=== PATIENT | male | born 1945 | race Caucasian/White ===

== ENCOUNTER 2020-09-29 10:14 | Emergency (ER) | payer MEDICARE, OTHER, SELFPAY ==
[2020-09-29 10:28] VITALS: BP 121/67; PULSE 85; RESP 18; TEMP 36.1; O2SAT 99
[2020-09-29 11:25] VITALS: BP 153/79; PULSE 68; RESP 16; O2SAT 99
[2020-09-29 11:32] VITALS: PULSE 68
--- NOTE | 2020-09-29 11:50 | ECG_ITS ---
Measurements Intervals [place] Rate: 61 P: 45 MT: 182 QRS: -11 QRSD: 106 T: 21 QT: 384 QTc: 390 Interpretive Statements SINUS RHYTHM DELAYED PRECORDIAL R/S TRANSITION BASELINE ARTIFACT- I, III BORDERLINE ECG Electronically Signed On 09-29-2020 13:47:14 CDT by Dave Mas D.O.
[2020-09-29 12:22] LABS: Basophils Percent Auto 0.3 % (0.2-1.2); Eosinophils Percent Auto 0.3 % (0-4.4); Hematocrit 43.6 % (42.0-52.0); Hemoglobin 15.3 g/dL (14.0-18.0); Immature Granulocyte Absolute 0.08 K/mm3 (0.00-0.031); Immature Granulocyte Percent A 1.2 % (0-0.5); Lymphocytes Percent Auto 15.9 % (18.3-44.2); Mean Corpuscular HGB Conc 35.1 g/dl (32-36); Mean Corpuscular Hemoglobin 34.5 pg (26-34); Mean Corpuscular Volume 98.4 fl (80-100); Mean Platelet Volume 9.2 fl (7.4-10.4); Monocytes Absolute Auto 0.6 K/mm3 (0.1-0.6); Monocytes Percent Auto 8.9 % (2.6-8.5); Neutrophils Absolute Auto 5.1 K/mm3 (1.3-6.7); Neutrophils Percent Auto 73.4 % (45.5-73.1); Platelet Count Result 282 k/mm3 (150-375); Red Blood Count 4.43 M/mm3 (4.6-6.20); Red Cell Distribution Width 12.2 % (11.5-14.5); White Blood Count 6.9 K/mm3 (4.5-10.0)
[2020-09-29 12:31] LABS: Alanine Aminotransferase 23 U/L (4-50); Albumin Level 4.4 g/dL (3.5-5.1); Alkaline Phosphatase 68 U/L (38-126); Anion Gap 6 mmol/L (8-16); Aspartate Amino Transferase 33 U/L (17-59); Bilirubin,Total 0.5 mg/dL (0.2-1.3); Blood Urea Nitrogen 16 mg/dL (9-20); Calcium 9.7 mg/dL (8.4-10.2); Carbon Dioxide 30 mmol/L (22-30); Chloride 97 mmol/L (98-107); Estimated CRCL calculation 57 ml/min; Estimated Glomerular Filt Rate > 60; Glucose 113 mg/dL (75-110); Potassium 3.6 mmol/L (3.4-5.0); Sodium 133 mmol/L (137-145)
[2020-09-29 12:42] LABS: Troponin I < 0.012 ng/mL (0.000-0.034)
--- NOTE | 2020-09-29 12:44 | ED.GENADULT ---
HPI - General Adult General Chief complaint: Unspecified Stated complaint: arm tingling, hx of back problems x1 wk Time Seen by Provider: 09/29/20 11:22 Source: patient and family Mode of arrival: ambulatory Limitations: no limitations History of Present Illness HPI narrative: 75-year-old male History of peripheral vascular disease and previous neck surgery Patient complains of about a 10-day history of tingling paresthesias in both arms He reports that usually he feels okay when he first gets up in the morning but then the paresthesias occur after a while and remained for most of the day Apart from being up and around no specific activities seem to cause or exacerbate the symptoms; it really doesn't matter whether he is walking around standing still or sitting He does not have any other new symptoms, no chest pain, no dizziness or diaphoresis, no cough or shortness of breath, no nausea or other GI symptoms, no focal weakness He chronically complains of leg fatigue with ambulation and has seen his vascular surgeon about this and reports that they thought it might be neuropathic He is most worried about whether he has a heart issue, or a vascular issue in the arms, or return of his back problems Related Data Home Medications Medication Instructions Recorded Confirmed amlodipine 05/21/19 01/19/20 atorvastatin 05/21/19 01/19/20 clopidogrel 05/21/19 01/19/20 finasteride mg 05/21/19 01/19/20 lisinopril-hydrochlorothiazide tablet 05/21/19 01/19/20 milk thistle mg 05/21/19 01/19/20 pediatric bwcyvjyf-vdut-pbc 1 tablet PO DAILY 05/21/19 01/19/20 [Multi-Vitamins with Iron] saw palmetto 500 mg PO BID 05/21/19 01/19/20 tamsulosin mg PO 05/21/19 01/19/20 Allergies Allergy/AdvReac Type Severity Reaction Status Date / Time No Known Allergies Allergy Verified 09/29/20 11:30 Review of Systems Review of Systems: All systems reviewed & are unremarkable except as noted in HPI and below Constitutional: Constitutional: Reports no additional constitutional complaints, Denies chills, Denies fever(s) and Denies headache(s) Eyes: Eyes: Reports no additional eye complaints and Denies change in vision ENT: Denies headache(s) and Denies sore throat Cardiovascular: Cardiovascular: Denies chest pain and Denies dyspnea Respiratory: Respiratory: Denies cough and Denies dyspnea Gastrointestinal: Gastrointestinal: Denies abdominal pain, Denies diarrhea and Denies vomiting Genitourinary: Genitourinary: Denies dysuria and Denies urinary frequency Musculoskeletal: Musculoskeletal: Reports abnormal gait, Denies deformity, Denies arthralgias, Denies joint swelling, Reports muscle cramps, Reports muscle weakness, Denies numbness and Reports radiating pain into limb Integumentary/Breasts: Skin/Breast: Denies rash and Denies wounds Neurologic: Denies headache(s), Denies focal weakness, Denies numbness, Reports tingling, Reports paresthesias and Denies weakness Psychiatric: Psychiatric: Reports no additional psychiatric complaints Endocrine: Endocrine: Reports no additional endocrine complaints Hematologic/Lymphatic: Hematologic/Lymphatic: Reports no additional hematologic/lymphatic complaints Allergic/Immunologic: Allergic/Immunologic: Reports no additional allergic/immunologic complaints PMF Past Medical History Medical History (Updated 09/29/20 @ 13:03 by Willard Stanford MD) BMI 25.0-25.9,adult Femoral artery stenosis, left Hyperlipidemia Hypertension Peripheral vascular disease Prostatitis Surgical History Surgical History (Updated 01/19/20 @ 08:23 by Elian Alarcon MD) History of lumbar fusion History of right knee surgery revision right total knee replacement December 2018 History of tonsillectomy Family History Family History (Updated 01/19/20 @ 08:02 by Laverne Michaels) Father Hypertension Social History Social History Smoking status: Never smoker Gender
[2020-09-29 14:03] VITALS: BP 157/72; PULSE 69; RESP 18; O2SAT 100
== END 2020-09-29 14:17 | disposition home or self-care (01) ==
PROVIDERS: Emergency Provider Emergency Medicine; PCP Family Medicine
DX: R20.2 Paresthesia of skin (principal); E78.5 Hyperlipidemia, unspecified; I10 Essential (primary) hypertension; N41.9 Inflammatory disease of prostate, unspecified; I70.202 Unspecified atherosclerosis of native arteries of extremities, left leg; Z98.1 Arthrodesis status; Z96.651 Presence of right artificial knee joint; R94.31 Abnormal electrocardiogram [ECG] [EKG]
CPT/HCPCS: 36415; 80053; 84484; 85025; 93005; 99284

== ENCOUNTER 2020-11-02 13:26 | Outpatient (CLI) | payer MEDICARE, OTHER, SELFPAY ==
--- NOTE | ~2020-11-02 | MR_ITS ---
EXAMINATION: MR lumbar spine wo con DATE: 11/02/2020 15:45 INDICATION: Lumbar spondylosis. Back pain. TECHNIQUE: Magnetic resonance imaging (MRI) of the lumbar spine was performed without intravenous con trast. Sequences included sagittal T2-weighted FSE, sagittal T2-weighted FS FSE, sagittal T1-weighted FSE, and axial T2-weighted FSE. COMPARISON: None FINDINGS: Bone alignment is normal. There is mild chronic anterior wedging of T12 and L1 vertebral enmanuel dies. There is mildly decreased disc height at L4-L5. There is severely decreased disc height at L5-S 1 with endplate remodeling. The distal spinal cord signal intensity is normal. The conus medullaris i s at L1. The following disc levels are specifically discussed: L1-L2: The disc is bulging. There is mild right and moderate left facet joint osteoarthritis. There i s no neural foraminal stenosis. There is mild central canal stenosis. L2-L3: The disc is bulging. There is moderate bilateral facet joint osteoarthritis. There is mild shad ateral neural foraminal stenosis. There is mild central canal stenosis. L3-L4: The disc is bulging. There is moderate right and severe left facet joint osteoarthritis. There is mild bilateral neural foraminal stenosis. There is mild central canal stenosis. L4-L5: The disc is bulging. There is severe bilateral facet joint osteoarthritis. There is mild right and moderate left neural foraminal stenosis. There is mild central canal stenosis. L5-S1: The disc is bulging. There is moderate bilateral facet joint osteoarthritis. There is moderate right and mild left neural foraminal stenosis. There is mild central canal stenosis. IMPRESSION: 1. Severe lower lumbar spondylosis. Reviewed, dictated and finalized at location A.
--- NOTE | ~2020-11-02 | MR_ITS ---
EXAMINATION: MR thoracic spine wo con DATE: 11/02/2020 15:45 INDICATION: Other spondylosis. Back pain. TECHNIQUE: Magnetic resonance imaging (MRI) of the thoracic spine was performed without intravenous c ontrast. Sagittal localizer T1-weighted FSE of the cervical spine was obtained. Thoracic spine sequen angelina included sagittal T2-weighted FSE, sagittal T1-weighted FSE, sagittal STIR FSE, and axial T2-weig hted FSE. COMPARISON: CT abdomen and pelvis 11/02/2020 FINDINGS: There is 9 degrees levocurvature of thoracic spine. There is a chronic compression fracture of T9 with 3/5 loss of height and focal kyphosis. There is a hemangioma in T7 vertebral body. There is moderately decreased disc height at T8-T9. At T1-T2, the disc is bulging with mild central canal s tenosis. At T2-T3, the disc is bulging with mild central canal stenosis. At T3-T4, there is a left fo raminal protrusion. There is ankylosis of the facet joints bilaterally from T6 to T11. There is sever e facet joint osteoarthritis in upper thoracic spine. On the right, there is mild neural foraminal st enosis at T9-T10. On the left, there is mild neural foraminal stenosis at T1-T2, T3-T4, and T9-T10. IMPRESSION: 1. Mild thoracic spondylosis. Reviewed, dictated and finalized at location A.
--- NOTE | ~2020-11-02 | MR_ITS ---
EXAMINATION: MR cervical spine wo con DATE: 11/02/2020 15:45 INDICATION: Cervical spondylosis. Back pain. TECHNIQUE: Magnetic resonance imaging (MRI) of the cervical spine was performed without intravenous c ontrast. Sequences included sagittal T2-weighted FSE, sagittal STIR FSE, sagittal T1-weighted FSE, ax ial MERGE, and axial T2-weighted FSE. COMPARISON: None FINDINGS: There is 2 mm anterolisthesis of C4 on C5 and C7 on T1. Vertebral body heights are normal. There is mildly decreased disc height at C4-C5, severely decreased disc height at C5-C6 and C6-C7, an d mildly decreased disc height at C7-T1. The spinal cord signal intensity is normal. The following di sc levels are specifically discussed: C2-C3: The disc does not extend beyond the endplate margin. There is no uncovertebral joint osteoarth ritis. There is mild bilateral facet joint osteoarthritis. There is no neural foraminal stenosis. The re is no central canal stenosis. C3-C4: The disc is bulging. There is mild bilateral uncovertebral joint osteoarthritis. There is mode rate right and mild left facet joint osteoarthritis. There is mild bilateral neural foraminal stenosi s. There is mild central canal stenosis. C4-C5: The disc is bulging. There is severe bilateral uncovertebral joint osteoarthritis. There is se venessa bilateral facet joint osteoarthritis. There is moderate bilateral neural foraminal stenosis. The re is mild central canal stenosis. C5-C6: The disc is bulging. There is severe bilateral uncovertebral joint osteoarthritis. There is mi ld bilateral facet joint osteoarthritis. There is moderate bilateral neural foraminal stenosis. There is mild central canal stenosis. C6-C7: The disc is bulging. There is severe bilateral uncovertebral joint osteoarthritis. There is mo derate bilateral facet joint osteoarthritis. There is mild bilateral neural foraminal stenosis. There is mild central canal stenosis. C7-T1: The disc does not extend beyond the endplate margin. There is no uncovertebral joint osteoarth ritis. There is ankylosis of the facet joints with mild hypertrophy. There is mild bilateral neural f oraminal stenosis. There is no central canal stenosis. IMPRESSION: 1. Severe cervical spondylosis. Reviewed, dictated and finalized at location A.
== END 2020-11-02 13:27 | disposition home or self-care (01) ==
LOC: ANHIMG 13:31
PROVIDERS: PCP Family Medicine; Visit Provider Family Medicine
DX: M47.893 Other spondylosis, cervicothoracic region (principal); R20.2 Paresthesia of skin; M47.894 Other spondylosis, thoracic region; M47.892 Other spondylosis, cervical region; M47.896 Other spondylosis, lumbar region
CPT/HCPCS: 72141; 72146; 72148

== ENCOUNTER 2021-06-05 13:31 | Emergency (ER) | payer MEDICARE, OTHER, SELFPAY ==
[2021-06-05] VITALS (7 sets, daily range): BP systolic 113–151; BP diastolic 71–87; PULSE 67–87; RESP 16–24; TEMP 36.1–37; O2SAT 86–100
--- NOTE | ~2021-06-05 | CT_ITS ---
EXAMINATION: CT brain wo con INDICATION: Dizziness COMPARISON: 05/04/2015 TECHNIQUE: Standard unenhanced head CT. The dose-length product (DLP) was 605.33 mGy-cm. The mA was a djusted according to patient size. Iterative reconstruction technique was employed. FINDINGS: There is no acute intraparenchymal hemorrhage. No evidence of mass lesion. No evidence of a cute infarction. There is mild periventricular and subcortical hypodensity probably related to small vessel ischemic disease. There is mild prominence of the sulci and ventricles related to cerebral atr ophy. Intracranial calcified cerebral atherosclerosis is noted. There are no extra-axial collections. There is no mass effect or midline shift. Changes in the globes are likely from ocular lens surgery. The visualized sinuses and mastoid air cells are well aerated. IMPRESSION: 1. No acute intracranial abnormality. 2. Age related findings. Reviewed, dictated and finalized at location F. PROGRAM DIRECTOR
--- NOTE | ~2021-06-05 | XR_ITS ---
EXAMINATION: XR chest 2V DATE: 06/05/2021 19:22 INDICATION: Dizziness TECHNIQUE: PA and lateral views of the chest are obtained. COMPARISON: 03/14/2015 FINDINGS: The lungs are free of acute opacities. There is chronic subpleural opacity at the lateral a spect of the right thorax. There are also chronic opacities of the right mid and lower lung zones. No acute superimposed opacities are identified. The cardiomediastinal silhouette is normal. There is no pleural effusion or pneumothorax. The cardiomediastinal silhouette is normal. There is an unchanged chronic mid thoracic compression fracture. IMPRESSION: 1. Chronic scarring and opacity of the right lung without acute cardiopulmonary abnormality. Reviewed, dictated and finalized at location F. WORKER
--- NOTE | 2021-06-05 16:25 | ECG_ITS ---
Measurements Intervals [place] Rate: 80 P: 44 LA: 144 QRS: -14 QRSD: 96 T: 64 QT: 347 QTc: 402 Interpretive Statements SINUS RHYTHM VENTRICULAR PREMATURE COMPLEXES BORDERLINE R WAVE PROGRESSION, ANTERIOR LEADS BASELINE ARTIFACT- I, AVL, AVF, V6 BORDERLINE ECG Electronically Signed On 06-05-2021 17:04:53 POLLUTION CONTROL CHEMIST by Dave Mas D.O.
--- NOTE | 2021-06-05 18:20 | ED.DIZZY ---
HPI - Dizziness General Chief Complaint: Dizziness Stated Complaint: sent by primary - needs EKG Time Seen by Provider: 06/05/21 18:20 Source: patient Mode of arrival: ambulatory Limitations: no limitations History of Present Illness HPI Narrative: Patient is a 76 yo male with a history of HTN, HLD, BPH. Patient states he has been intermittently lightheaded and dizzy. He denies any current dizziness. No spinning sensation. No difficulty with ambulation. Patient states that he had an appointment with his primary care provider and had his pulse checked which was found to be irregular, and his blood pressure was found to be elevated, thus he was sent to the emergency department for evaluation. Patient states he sometimes is aware that he has an irregular heartbeat or feels as if his heart is skipping a beat. He denies any leg swelling or calf pain. Patient denies any current chest pain or palpitations. No recent falls or injuries. No loss of consciousness or syncopal events. Patient denies any shortness of breath, current dizziness, lightheadedness. Patient denies any fever, chills, nausea, vomiting or abdominal pain. Patient denies any vision changes. No headache. No difficulty with bowel or bladder function. Related Data Home Medications Medication Instructions Recorded Confirmed amlodipine 06/05/21 atorvastatin 06/05/21 clopidogrel 06/05/21 finasteride mg 06/05/21 lisinopril-hydrochlorothiazide tablet 06/05/21 rivaroxaban [Xarelto] mg 06/05/21 tamsulosin mg PO 06/05/21 zolpidem 06/05/21 Allergies Allergy/AdvReac Type Severity Reaction Status Date / Time No Known Allergies Allergy Verified 06/05/21 19:35 Review of Systems Review of Systems: CONSTITUTIONAL: Denies fever, chills, or sweats. EYES: Denies visual changes, redness, or discharge. ENT: Denies rhinorrhea, congestion, sore throat, or otalgia. CARDIOVASCULAR: Denies chest pain, patient reports palpitations or skipped beats RESPIRATORY: Denies cough or dyspnea. GASTROINTESTINAL: Denies abdominal pain, nausea, vomiting, or diarrhea. GENITOURINARY: Denies dysuria or hematuria. SKIN: Denies rash or itching. MUSCULOSKELETAL: Denies back pain, joint pain, or myalgia. NEUROLOGIC: Denies headache, numbness, or weakness. PSYCHIATRIC: Patient does report anxiety [facility] Family History Family History (Updated 10/29/18 @ 08:17 by DOCTOR UNKNOWN) Other Acute myocardial infarction Family history of malignant neoplasm of ovary Hypertension Social History Social History (Updated 06/05/21 @ 20:27 by Nallely Garay MD) Alcohol intake: never Substance use: never Living arrangements: with family Gender identity (if verbalized by the patient): Male Exam Narrative: GENERAL: Awake, alert, conversant HEAD: Normocephalic, atraumatic. EYES: PERRLA and EOMI. ENT: Nares clear, no rhinorrhea or epistaxis. Mucous membranes moist. NECK: Supple. CHEST: No respiratory distress, breathing even and non labored HEART: Regular rate, sinus rhythm ABDOMEN:Non distended, non tender EXTREMITIES: Normal range of motion. No edema. SKIN: Warm, dry, no rash. NEURO:No focal deficits. Alert and oriented x3. Finger to nose intact bilaterally. EOMs intact without nystagmus. No facial droop/asymmetry noted bilaterally. Grimace intact. Intact sensation in face. Hearing intact bilaterally. Shoulder shrug intact. Strength 5/5 bilateral upper extremities. Strength 5/5 bilateral lower extremities. Reflexes 2+ patellar. Heel to plummer intact bilaterally. Ambulatory with a narrow base, steady gait, no ataxia. Course Vital Signs Vital signs: Vital Signs Temperature 36.2 C L 06/05/21 13:34 Pulse Rate 84 06/05/21 13:34 Respiratory Rate 18 06/05/21 13:34 Blood Pressure 151/71 H 06/05/21 13:34 Pulse Oximetry 97 06/05/21 13:34 Temperature 37.0 C 06/05/21 19:32 Pulse Rate 80 06/05/21 20:04 Respiratory Rate 20 06/05/21 20:04 Blood Pressu
[2021-06-05] MEDS: MECLIZINE HCL 25 MG TABLET PO (19:25)
[2021-06-05] MEDS: SODIUM CHLORIDE 0.9% IV 1,000 ML 999 ML IV CONT (19:25)
[2021-06-05 19:41] LABS: Basophils Percent Auto 0.4 % (0.2-1.2); Eosinophils Percent Auto 0.3 % (0-4.4); Hemoglobin 16.6 g/dL (14.0-18.0); Immature Granulocyte Absolute 0.11 K/mm3 (0.00-0.031); Immature Granulocyte Percent A 1.1 % (0-0.5); Lymphocytes Percent Auto 15.9 % (18.3-44.2); Mean Corpuscular HGB Conc 36.1 g/dl (32-36); Mean Corpuscular Hemoglobin 33.9 pg (26-34); Mean Corpuscular Volume 93.9 fl (80-100); Mean Platelet Volume 9.2 fl (7.4-10.4); Monocytes Absolute Auto 0.8 K/mm3 (0.1-0.6); Monocytes Percent Auto 8.1 % (2.6-8.5); Neutrophils Absolute Auto 7.5 K/mm3 (1.3-6.7); Neutrophils Percent Auto 74.2 % (45.5-73.1); Platelet Count Result 301 k/mm3 (150-375); Red Cell Distribution Width 11.7 % (11.5-14.5); White Blood Count 10.1 K/mm3 (4.5-10.0)
[2021-06-05 19:59] LABS: Alanine Aminotransferase 25 U/L (4-50); Albumin Level 4.9 g/dL (3.5-5.1); Alkaline Phosphatase 82 U/L (38-126); Anion Gap 10 mmol/L (8-16); Aspartate Amino Transferase 29 U/L (17-59); Bilirubin,Total 0.6 mg/dL (0.2-1.3); Blood Urea Nitrogen 18 mg/dL (9-20); Calcium 9.9 mg/dL (8.4-10.2); Carbon Dioxide 29 mmol/L (22-30); Chloride 89 mmol/L (98-107); Estimated CRCL calculation 51 ml/min; Estimated Glomerular Filt Rate > 60; Glucose 125 mg/dL (65-110); Potassium 3.9 mmol/L (3.4-5.0); Sodium 128 mmol/L (137-145)
[2021-06-05 19:59] LABS: Add Urine Microscopic? YES; Appearance Urine Clear (Clear); Bilirubin Urine Negative (Negative); Blood Urine Negative (Negative); Color Urine Yellow (Yellow); Glucose Urine UA Negative (Negative); Ketones Urine Negative (Negative); Leukocyte Esterase Ur Negative LEU/UL (Negative); Mucus Urine Rare /lpf; Nitrate Urine Negative (Negative); Protein Urine 1+ mg/dL (Negative); RBC Urine 0-2 /hpf (0-2); Specific Grav Ur 1.012 (1.001-1.035); Urobilinogen Urine Negative mg/dL (<2.0); WBC Urine 0-3 /hpf
[2021-06-05 20:10] LABS: Troponin I < 0.012 ng/mL (0.000-0.034)
== END 2021-06-05 20:42 | disposition home or self-care (01) ==
PROVIDERS: Emergency Provider Emergency Medicine; PCP Family Medicine
DX: R42 Dizziness and giddiness (principal); I49.3 Ventricular premature depolarization; I10 Essential (primary) hypertension; N40.0 Benign prostatic hyperplasia without lower urinary tract symptoms; Z79.01 Long term (current) use of anticoagulants; R94.31 Abnormal electrocardiogram [ECG] [EKG]
CPT/HCPCS: 36415; 70450; 71046; 80053; 81001; 84484; 85025; 93005; 96360; 99284; A9270; J7030

== ENCOUNTER 2022-04-09 08:00 | Outpatient (NON) | payer MEDICARE, OTHER, SELFPAY | END 2022-04-09 08:01 | disposition home or self-care (01) | LOC: ANHLAB 12:41 | PROVIDERS: PCP Family Medicine; Referring Provider Nurse Practitioner; Visit Provider Nurse Practitioner | DX: C44.92 Squamous cell carcinoma of skin, unspecified (principal) | CPT/HCPCS: 88305; 88331 ==

== ENCOUNTER 2023-12-13 09:14 | Outpatient (CLI) | payer MEDICARE, OTHER, SELFPAY ==
--- NOTE | ~2023-12-13 | XR_ITS ---
Right Knee Technique: AP, lateral, and sunrise views were obtained. Clinical History: Arthroplasty follow-up COMPARISON: 01/09/2023 Findings: No fracture or dislocation is seen. Right knee arthroplasty is unchanged. Soft tissues are unremarkable. No joint effusion is seen. Impression: Stable right knee arthroplasty. No acute abnormality. Reviewed, dictated and finalized at location . Impression: Stable right knee arthroplasty. No acute abnormality.
== END 2023-12-13 09:15 | disposition home or self-care (01) ==
PROVIDERS: PCP Family Medicine; Visit Provider Orthopaedic Surgery
DX: Z98.890 Other specified postprocedural states (principal)
CPT/HCPCS: 73562

== ENCOUNTER 2024-01-04 16:49 | Emergency (ER) | payer MEDICARE, OTHER, SELFPAY ==
[2024-01-04 16:53] VITALS: BP 143/61; PULSE 81; RESP 18; TEMP 36.4; O2SAT 97
--- NOTE | 2024-01-04 18:53 | PC.NURSE ---
pt left d/t wait time, pt asked for cab #. left with , will see PCP on Saturday
== END 2024-01-04 20:06 | disposition left against medical advice (07) ==
LOC: ANHED 18:59
PROVIDERS: PCP Family Medicine
DX: R42 Dizziness and giddiness (principal)
CPT/HCPCS: 99199

== ENCOUNTER 2024-01-05 15:18 | Inpatient (IN) | payer MEDICARE, OTHER, SELFPAY ==
[2024-01-05] VITALS (15 sets, daily range): BP systolic 139–154; BP diastolic 62–83; PULSE 61–82; RESP 12–23; TEMP 36.4–36.8; O2SAT 95–100; BMI 25.7
--- NOTE | ~2024-01-05 | CT_ITS ---
EXAMINATION: CT abdomen pelvis w con DATE: 01/05/2024 17:01 INDICATION: Hematemesis. Blood in stool. TECHNIQUE: Computed tomography (CT) of the abdomen and pelvis was performed with 100 mL Omnipaque 350 intravenous contrast. Automated exposure control and iterative reconstruction technique were employe d. The dose-length product was 442.85 mGy-cm. COMPARISON: CT abdomen and pelvis 06/17/16 FINDINGS: The visualized portions of the lung bases demonstrate mild atelectasis and mild chronic ramakrishna g disease. Calcified right lung nodules are consistent with old granulomatous disease. There are calc ified pleural plaques on the right. No pleural effusion. The heart size is normal. No pericardial eff usion. The liver is normal. There is a gallstone in the gallbladder, which is normal in size. Calcifi cations in the spleen are consistent with old granulomatous disease. The pancreas, adrenal glands, an d kidneys are normal. The appendix measures 8 mm in diameter without inflammation to suggest appendic itis. There are no pathologically enlarged lymph nodes. There is no free intraperitoneal fluid. There is severe lumbar spondylosis. IMPRESSION: 1. No specific etiology for the patient's symptoms. Reviewed, dictated and finalized at location E.
--- NOTE | 2024-01-05 15:26 | ED.GIBLEED ---
HPI - GI Bleed General Chief complaint: GI Bleed Stated complaint: black stool and coffee ground emesis Time Seen by Provider: 01/05/24 15:25 Source: patient and family Mode of arrival: ambulatory Limitations: no limitations History of Present Illness HPI Narrative: Patient states on Saturday when he was diaphoretic but temperature was afebrile; he also got dizzy while on the toilet. He subsequently had an episode of coffee-ground emesis. On Saturday, he started having loose dark stools that then became known and black. Continues to have daily black stools. He has previously had colonoscopies but does not regularly follow with a barytes grinder. He had a colonoscopy in 2009 performed in [place] as well as subsequent colonoscopies performed by Dr. Torres in 2013 and 2018 which polyp was removed but otherwise unremarkable per patient report. Patient states he was having some abdominal pain yesterday but not currently. He also reports no syncope that he has been getting lightheaded and in general has had decreased appetite. Denies history hepatic issues or cardiac disease including no history of heart failure. Patient sees Dr. Garcia for his peripheral arterial disease who prescribes clopidogrel and cilostazol. His last dose of these medications was 2 days ago. He does state that he had also taken a few doses of naprosyn. Patient did take Pepto-Bismol yesterday. Not on iron supplementation. Patient takes metoprolol for his PVCs. Related Data Home Medications Medication Instructions Recorded Confirmed finasteride 5 mg tablet mg 05/21/19 12/13/23 lisinopril 20 tablet 05/21/19 12/13/23 mg-hydrochlorothiazide 25 mg tablet milk thistle 150 mg capsule mg 05/21/19 12/13/23 pediatric pxuolpyl-wkef-tcr 1 tablet PO DAILY 05/21/19 12/13/23 (Multi-Vitamins with Iron chewable tablet) saw palmetto 500 mg capsule 500 mg PO BID 05/21/19 12/13/23 clopidogrel 75 mg tablet 06/05/21 12/13/23 zolpidem 10 mg tablet 06/05/21 12/13/23 atorvastatin 10 mg tablet 10 mg PO DAILY 01/10/22 12/13/23 cilostazol 100 mg tablet 100 mg PO BID 01/09/23 12/13/23 metoprolol succinate 25 mg 25 mg PO BID 01/09/23 12/13/23 tablet,extended release 24 hr Allergies Allergy/AdvReac Type Severity Reaction Status Date / Time No Known Allergies Allergy Verified 12/13/23 10:21 [facility] Past Medical History Medical History BMI 25.0-25.9,adult Femoral artery stenosis, left Hyperlipidemia Hypertension Peripheral vascular disease Premature ventricular contraction Prostatitis Surgical History Surgical History History of colonoscopy 2009 (in [place]); [address] Oconnor History of lumbar fusion History of right knee surgery revision right total knee replacement December 2018 History of tonsillectomy Family History Family History Father Hypertension Other Acute myocardial infarction Family history of malignant neoplasm of ovary Social History Social History Smoking status: Former smoker Alcohol intake: current Alcohol use details: occasional Substance use: never Lack of Transportation: No Lack of Food: Never True Current Housing: I Have Housing Concerned About Future Housing: No Difficulty Paying Gas/Electric Bills: No Difficulty Paying for Meds: No Currently Unemployed: No Education: Bachelor's Degree Difficulty w/ Childcare or Family Care: No Living arrangements: with family Occupation/Education: retired Gender identity (if verbalized by the patient): Male Exam Narrative: GENERAL: Well-appearing, well-nourished, and in no acute distress. HEAD: Normocephalic, atraumatic. EYES: Non injected, non icteric ENT: Nares clear, no rhinorrhea or epistaxis. NECK: Supple. CHEST: Speak
[2024-01-05] MEDS: PANTOPRAZOLE SODIUM IV 40 MG VIAL 80 MG IV PUSH (15:52)
[2024-01-05 16:14] LABS: Basophils Percent Auto 0.2 % (0.2-1.2); Eosinophils Percent Auto 0.2 % (0-4.4); Hematocrit 26.3 % (42.0-52.0); Hemoglobin 9.4 g/dL (14.0-18.0); Immature Granulocyte Absolute 0.13 K/mm3 (0.00-0.031); Immature Granulocyte Percent A 1.4 % (0-0.5); Lymphocytes Absolute Auto 1.89 K/mm3 (0.9-3.2); Lymphocytes Percent Auto 20.3 % (18.3-44.2); Mean Corpuscular HGB Conc 35.7 g/dl (32-36); Mean Corpuscular Hemoglobin 35.2 pg (26-34); Mean Corpuscular Volume 98.5 fl (80-100); Mean Platelet Volume 9.4 fl (7.4-10.4); Monocytes Absolute Auto 0.6 K/mm3 (0.1-0.6); Monocytes Percent Auto 6.8 % (2.6-8.5); Neutrophils Absolute Auto 6.6 K/mm3 (1.3-6.7); Neutrophils Percent Auto 71.1 % (45.5-73.1); Platelet Count Result 298 k/mm3 (150-375); Red Blood Count 2.67 M/mm3 (4.6-6.20); Red Cell Distribution Width 12.4 % (11.5-14.5); White Blood Count 9.3 K/mm3 (4.5-10.0)
[2024-01-05 16:24] LABS: Prothrombin Time 13.5 Seconds (11.1-14.7)
[2024-01-05 16:25] LABS: Partial Thromboplastin Time 25.6 Seconds (22.3-36.8)
[2024-01-05 16:26] LABS: Lactic Acid Reflex 1.6 mmol/L (0.7-2.0)
[2024-01-05 16:30] LABS: Alanine Aminotransferase 27 U/L (6-50); Albumin Level 3.8 g/dL (3.5-5.1); Alkaline Phosphatase 66 U/L (38-126); Anion Gap 11 mmol/L (4-12); Aspartate Amino Transferase 47 U/L (17-59); Bilirubin,Total 0.9 mg/dL (0.2-1.3); Blood Urea Nitrogen 24 mg/dL (9-20); Calcium 8.5 mg/dL (8.4-10.2); Carbon Dioxide 24 mmol/L (22-30); Chloride 84 mmol/L (98-107); Estimated CRCL calculation 57 ml/min; Estimated Glomerular Filt Rate > 60; Glucose 123 mg/dL (65-110); Magnesium 1.6 mg/dL (1.6-2.3); Potassium 3.8 mmol/L (3.4-5.0); Sodium 119 mmol/L (137-145)
--- NOTE | 2024-01-05 18:51 | PM.IMHP ---
H&P: HPI History of Present Illness Date/Time: 01/05/24 18:51 Chief Complaint: Melena, coffee-ground emesis, dizziness Narrative: This is a 78-year-old male patient who was admitted to the hospital for melena, coffee-ground emesis and dizziness. Patient states that 3 days ago he had episode of dizziness, 1 episode of coffee-ground emesis and began having black tarry stools. Patient states that prior to this he was having prostate pain so he took some naproxen even though he was told he should not do so because he is on blood thinners clopidogrel and cilostazol due to stents in his legs for peripheral artery disease. Patient reports that he is still dizzy and lightheaded at times. Review of prior labs shows in 2020 and 2021 patient had normal hemoglobin with last value recorded at 16.6. In the emergency department patient's hemoglobin was 9.4. Patient reports that he also chronically has mildly low sodium levels just under normal values but upon ER evaluation his sodium was noted to be 119. Patient states that he has been drinking a lot of extra water due to his lightheaded dizziness because he was trying to stay hydrated and raises blood pressure. Patient denies headache or confusion. CT scan abdomen pelvis was unremarkable. Gastroenterology was contacted by the emergency department will see patient tomorrow. He will be NPO except for sips of water with medications with likely planned for EGD and possible colonoscopy tomorrow. Patient did receive 80 mg of Protonix IV in the emergency department and will be placed on 40 mg b.i.d. IV. Patient denies any abdominal pain fever cough congestion chest pain nausea or ongoing vomiting. Review of Systems Review of Systems: All systems reviewed & are unremarkable except as noted in HPI and below PMFSH Past Medical History Medical History BMI 25.0-25.9,adult Femoral artery stenosis, left Hyperlipidemia Hypertension Peripheral vascular disease Premature ventricular contraction Prostatitis Surgical History Surgical History History of colonoscopy 2009 (in [place]); [address] Oconnor History of lumbar fusion History of right knee surgery revision right total knee replacement December 2018 History of tonsillectomy Family History Family History Father Hypertension Acute myocardial infarction Sibling Family history of malignant neoplasm of ovary Uterus cancer Social History Social History Smoking status: Former smoker Tobacco type: cigarettes Alcohol intake: current Drinks per week: 2 Alcohol use details: occasional Substance use: never Do You Feel Safe in your Home?: Yes Lack of Transportation: No Lack of Food: Never True Current Housing: I Have Housing Concerned About Future Housing: No Difficulty Paying Gas/Electric Bills: No Difficulty Paying for Meds: No Currently Unemployed: No Education: Bachelor's Degree Difficulty w/ Childcare or Family Care: No Living arrangements: with family Occupation/Education: retired Gender identity (if verbalized by the patient): Male Spiritual care concerns: No Meds Home Medications and Allergies Home Medications Medication Instructions Recorded Confirmed Type finasteride 5 mg tablet 5 mg PO DAILY 05/21/19 01/05/24 History lisinopril 20 1 tablet PO DAILY 05/21/19 01/05/24 History mg-hydrochlorothiazide 25 mg tablet pediatric jpgwgufe-espm-qvi 1 tablet PO DAILY 05/21/19 01/05/24 History (Multi-Vitamins with Iron chewable tablet) saw palmetto 500 mg capsule 450 mg PO BID 05/21/19 01/05/24 History clopidogrel 75 mg tablet 75 mg PO DAILY 06/05/21 01/05/24 History zolpidem 10 mg tablet 5 mg PO QHS PRN Insomnia 06/05/21 01/05/24 History atorvastatin 10
[2024-01-05] MEDS: LACTATED RINGERS 1,000 ML 100 ML IV CONT (19:03)
[2024-01-05 19:25] LABS: Creatinine Urine 19.9 mg/dL
[2024-01-05 19:40] LABS: Sodium Urine Random 56 meq/L; Urea Random Urine 257 MG/DL
[2024-01-05 20:07] LABS: Hematocrit 25.4 % (42.0-52.0); Hemoglobin 8.9 g/dL (14.0-18.0)
[2024-01-05 20:25] LABS: Sodium 120 mmol/L (137-145)
[2024-01-05] MEDS: METOPROLOL TARTRATE 25 MG TABLET PO (21:45)
[2024-01-05 23:30] LABS: Hematocrit 24.1 % (42.0-52.0); Hemoglobin 8.6 g/dL (14.0-18.0)
[2024-01-06] VITALS (22 sets, daily range): BP systolic 102–154; BP diastolic 49–69; PULSE 58–98; RESP 13–20; TEMP 36.1–36.6; O2SAT 96–100
[2024-01-06 00:43] LABS: Sodium 120 mmol/L (137-145)
[2024-01-06] MEDS: SODIUM CHLORIDE 0.9% IV 1,000 ML 100 ML IV CONT (01:18)
--- NOTE | 2024-01-06 02:48 | ADMGEN ---
This patient, Brooks Michaels Jr., was admitted to IMU Room 204-01 at 1855 on 01/05/2024. Patient/family oriented to hospital policies and general routines including ID bracelet, bed and alarms, visiting hours, pain management, procedures, bathroom and other care routines, personal items, smoking policy, room service/diet, and visiting hours. Information on how to activate the Rapid Response Team has been discussed. Patient/Family are encouraged to report perceived risks to care and to ask questions if they do not understand what they are told or what they should do.
[2024-01-06 04:02] LABS: Basophils Percent Auto 0.3 % (0.2-1.2); Eosinophils Absolute Auto 0.1 K/mm3 (0-0.3); Eosinophils Percent Auto 1.1 % (0-4.4); Hematocrit 24.9 % (42.0-52.0); Hemoglobin 8.6 g/dL (14.0-18.0); Immature Granulocyte Absolute 0.13 K/mm3 (0.00-0.031); Immature Granulocyte Percent A 1.8 % (0-0.5); Lymphocytes Absolute Auto 1.72 K/mm3 (0.9-3.2); Lymphocytes Percent Auto 24.4 % (18.3-44.2); Mean Corpuscular HGB Conc 34.5 g/dl (32-36); Mean Corpuscular Hemoglobin 34.5 pg (26-34); Mean Platelet Volume 9.2 fl (7.4-10.4); Monocytes Absolute Auto 0.7 K/mm3 (0.1-0.6); Monocytes Percent Auto 10.2 % (2.6-8.5); Neutrophils Absolute Auto 4.4 K/mm3 (1.3-6.7); Neutrophils Percent Auto 62.2 % (45.5-73.1); Platelet Count Result 261 k/mm3 (150-375); Red Blood Count 2.49 M/mm3 (4.6-6.20); Red Cell Distribution Width 12.3 % (11.5-14.5)
[2024-01-06 04:03] LABS: Hematocrit 24.6 % (42.0-52.0); Hemoglobin 8.7 g/dL (14.0-18.0)
[2024-01-06 04:09] LABS: INR 1.1; Prothrombin Time 14.7 Seconds (11.1-14.7)
[2024-01-06 04:11] LABS: Sodium 123 mmol/L (137-145)
[2024-01-06 04:21] LABS: Albumin Level 3.6 g/dL (3.5-5.1); Anion Gap 10 mmol/L (4-12); Blood Urea Nitrogen 17 mg/dL (9-20); Calcium 8.4 mg/dL (8.4-10.2); Carbon Dioxide 25 mmol/L (22-30); Chloride 89 mmol/L (98-107); Estimated CRCL calculation 55 ml/min; Estimated Glomerular Filt Rate > 60; Glucose 88 mg/dL (65-110); Magnesium 1.7 mg/dL (1.6-2.3); Phosphorus 2.9 mg/dL (2.5-4.5); Potassium 3.5 mmol/L (3.4-5.0); Sodium 124 mmol/L (137-145)
[2024-01-06 08:00] LABS: Hematocrit 25.1 % (42.0-52.0); Hemoglobin 8.8 g/dL (14.0-18.0)
[2024-01-06 08:12] LABS: Sodium 125 mmol/L (137-145)
[2024-01-06] MEDS: SODIUM CHLORIDE 0.9% IV 1,000 ML 75 ML IV CONT (08:44)
[2024-01-06] MEDS: PANTOPRAZOLE SODIUM IV 40 MG VIAL IV PUSH ×2 (08:46→20:27)
[2024-01-06 09:22] LABS: Iron 102 ug/dL (49-181)
[2024-01-06 09:31] LABS: Percent Iron Saturation 34 % (20-50)
--- NOTE | 2024-01-06 10:03 | PM.CNNEP ---
Assessment and Plan Assessment and plan (1) Hyponatremia: Code(s): E87.1 - Hypo-osmolality and hyponatremia Status: Acute Assessment and Plan: long standing issue that has been present for years according to patient has been present as far back as 2018 by lab review here at [facility] last sodium was 137mmol/L on July 2023 admission sodium 119mmol/L with NPO status and IVFs, sodium up to 125mmol/L goal of therapy would be a change of 6 - 8mmol/L in 24 hours (i.e. no higher than 127mmol/L by 3:50PM today) risk factors for low sodium: excessive free water intake HCTZ BPH follow trend of serial/repeat sodium levels (2) GI bleed: Code(s): K92.2 - Gastrointestinal hemorrhage, unspecified Status: Acute Assessment and Plan: as noted by melena in ER along with guaiac positive stools suspect secondary to NSAID use coupled with plavix + cilostazol medications on IV PPI follow serial H/Hs Gastroenterology consultation holding all blood thinners at this time (3) Hypertension: Code(s): I10 - Essential (primary) hypertension Status: Acute Assessment and Plan: reasonabe control at this time lisinopril/HCTZ on hold due to #1 follow trend of hemodynamics I will continue follow the patient with you while he remains hospitalized and make further recommendations as deemed necessary. Thank you for allowing me to participate in the care of this patient. History of Present Illness Reason for Consult Consult date: 01/06/24 Reason for consult: hyponatremia (acute on chronic) Chief Complaint Chief complaint: GI bleed, anemia, hypoNa History of Present Illness Narrative: The patient is a 78-year-old male with a past medical history as outlined below who presented to [facility] Emergency Room with complaints of lightheadedness/dizziness in association with melena and coffee-ground emesis. The patient reports that approximately 3-4 days ago he had an episode of dizziness/ lightheadedness in association with coffee-ground emesis x1. Later that day, he noticed black tarry stools as well. Prior to these issues/ findings, he states he was having issues with his prostate and took multiple doses of naproxen in the hopes that that would relieve his pain/ discomfort. Unfortunately, he is also on Plavix and side low stays all due to his known peripheral vascular disease and stents in his lower extremities. Given the persistence of the dizziness and lightheadedness in association with the melena and coffee-ground emesis, he came to the emergency room for further assessment Workup and evaluation emergency room demonstrated the patient be hemodynamically stable and in no acute distress. Routine blood test demonstrated his home a globin being somewhat lower than his baseline in association with a chemistry that showed a sodium level of 119 millimoles per L. On further questioning, because of his dizziness and lightheadedness, he was concerned that he was dehydrated and so he has been pushing excessive oral fluid intake and to maintain hydration. In spite of his hyponatremia, he has had no neurological issues or sequelae. CT scan of the abdomen pelvis was unremarkable and he was noted be guaiac positive by testing done in the ER. Gastroenterology was consulted with recommendations for keeping the patient NPO with possible intervention in the form of an EGD and/or colonoscopy the following day. He was initiated on IV Protonix as well as gentle IV fluids and admitted to the hospital for further evaluation therapy. Since his admission, his sodium level has improved into the 124 millimoles per L range by recent testing. He has already been seen by Gastroenterology with a tentative plan for an EGD later today as well. Renal consultation was requested due to his acute hyponatremia. From review his records, it would appear the patient has chronic hyponatremia at that
[2024-01-06 10:32] LABS: Folic Acid > 20.0 ng/mL (2.76->20)
[2024-01-06] MEDS: ATORVASTATIN 10 MG TABLET PO (11:04)
[2024-01-06] MEDS: METOPROLOL TARTRATE 25 MG TABLET PO ×2 (11:05→20:27)
[2024-01-06] MEDS: FINASTERIDE 5 MG TABLET PO (11:05)
[2024-01-06] MEDS: MULTIVITS W-FE,MIN CHEWABLE TABLET 1 TABLET PO (11:05)
[2024-01-06 11:37] LABS: Hematocrit 25.3 % (42.0-52.0)
[2024-01-06 11:54] LABS: Sodium 124 mmol/L (137-145)
--- NOTE | 2024-01-06 12:34 | PM.IMPN ---
Progress Note: A&P Assessment and Plan (1) GI bleed due to NSAIDs: Code(s): K92.2 - Gastrointestinal hemorrhage, unspecified; T39.395A - Adverse effect of other nonsteroidal anti-inflammatory drugs [NSAID], initial encounter Status: Acute Assessment and Plan: Contineu PPI, GI consulted and awaiting EGD continue IVF and continue NPO pending GI eval hb 9.0, isat wnl monitor H and H Counseled about NSAIDs use cessation, noted this happens anytime he uses NSAIDs Gi consulted from ER (2) Melena: Code(s): K92.1 - Melena Status: Acute Assessment and Plan: Gross melena noted on [place] in the emergency department by ED provider. Guaiac-positive Likely result of taking naproxen while also being on clopidogrel and cilostazol Continue above care (3) Hyponatremia: Code(s): E87.1 - Hypo-osmolality and hyponatremia Status: Acute Assessment and Plan: Na 119 on admission na 120 125 this morning decrease IVF to 75cc/hr continue q4 monitoring and adjust with clinical course Discontinue HCTZ (4) Hypertension: Code(s): I10 - Essential (primary) hypertension Status: Acute Assessment and Plan: home hold meds and titrate with clinical course discontinue HCTZ due to hyponatremia (5) Hyperlipidemia: Code(s): E78.5 - Hyperlipidemia, unspecified Status: Acute Assessment and Plan: Continue low-dose atorvastatin (6) BPH (benign prostatic hyperplasia): Code(s): N40.0 - Benign prostatic hyperplasia without lower urinary tract symptoms Status: Acute Assessment and Plan: Patient reports prostate bothering him which is why he took the naproxen that ultimately led to the GI bleed Monitor output, bladder scan if not having consistent urinary output Plan Admit to IMU Gastroenterology consulted Nephrology consulted for hyponatremia Diet: NPO pending Gastroenterology IV fluids: LR 75 mL/hr DVT prophylaxis: SCDs, pharmacologic not recommended due to GI bleed GI prophylaxis: IV pantoprazole 40 mg twice daily Code status: Full code Subjective Date/time seen: 01/06/24 12:34 Interval history: Comfortable at bedside Noted melena stool but no vomiting Review of Systems Review of Systems: All systems reviewed & are unremarkable except as noted in HPI and below Exam Narrative: GENERAL: Well-appearing, well-nourished, and in no acute distress. HEAD: Normocephalic, atraumatic. EYES: Non injected, non icteric ENT: Nares clear, no rhinorrhea or epistaxis. NECK: Supple. No JVD CHEST: Speaking in full sentences. No respiratory distress. HEART: Regular rate and rhythm. ABDOMEN/GI: Soft, nondistended. EXTREMITIES: Normal range of motion. No edema. SKIN: Warm, dry, no rash. NEURO: No focal deficits. Alert and oriented x3. PSYCH: Normal mood and affect. Objective Data Vital Signs Vital Signs: Vital Signs - 24 hr 01/05/24 15:25 01/05/24 16:21 01/05/24 16:30 Temperature 98.2 F Pulse Rate 68 65 68 Respiratory Rate 16 12 17 Blood Pressure 151/62 H Pulse Oximetry 100 98 100 Oxygen Delivery 01/05/24 16:45 01/05/24 17:02 01/05/24 17:15 Temperature Pulse Rate 71 82 73 Respiratory Rate 20 21 H 18 Blood Pressure Pulse Oximetry 99 95 100 Oxygen Delivery 01/05/24 17:30 01/05/24 17:45 01/05/24 18:10 Temperature Pulse Rate 80 71 Respiratory Rate 21 H 23 H Blood Pressure Pulse Oximetry 100 100 Oxygen Delivery 01/05/24 18:15 01/05/24 19:09 01/05/24 20:00 Temperature 98.3 F 97.6 F Pulse Rate 72 77 65 Respiratory Rate 20 16 16 Blood Pressure 146/79 H 154/83 H 144/76 H Pulse Oximetry 100 100 100 Oxygen Delivery 01/05/24 21:45 01/05/24 23:54 01/05/24 20:00 Temperature 97.6 F Pulse Rate 80 61 70 Respiratory Rate 18 Blood Pressure 139/62 Pulse Oximetry 100 Oxygen Delivery 01/05/24 20:00 01/05/24 22:00 01/06/24 00:00 Temperature Pu
--- NOTE | 2024-01-06 12:45 | PC.NURSE ---
Pt Na level of [address] Camarena. No new orders. Will follow up with afternoon sodium draw
[2024-01-06] MEDS: LACTATED RINGERS 1,000 ML 150 ML IV CONT (13:32)
--- NOTE | 2024-01-06 13:34 | WPDANESEPPF ---
Anes - Initial Pre Proc Eval Procedure: Operation Date: 01/06/24 17:00 Proposed Procedures p Esophagogastroduodenoscopy - Reji Schmitt MD Date/Time: 01/06/24 13:34 Surgeon: Yareli Chawla MD Pre Op Diagnosis: GI bleed, anemia, hypoNa Patient Data Age: 78 Gender: M Height: 1.7 m Weight: 74.5 kg Last Vital Signs Temp 97.1 F L 01/06/24 13:28 Pulse 59 L 01/06/24 13:28 Resp 19 01/06/24 13:28 BP 154/61 H 01/06/24 13:28 Pulse Ox 100 01/06/24 13:28 O2 Del Method Room Air 01/06/24 13:28 Allergies Allergy/AdvReac Type Severity Reaction Status Date / Time No Known Allergies Allergy Verified 01/06/24 13:20 Home Medications Medication Instructions Recorded Confirmed Type finasteride 5 mg tablet 5 mg PO DAILY 05/21/19 01/05/24 History lisinopril 20 1 tablet PO DAILY 05/21/19 01/05/24 History mg-hydrochlorothiazide 25 mg tablet pediatric [id number] 1 tablet PO DAILY 05/21/19 01/05/24 History (Multi-Vitamins with Iron chewable tablet) saw palmetto 500 mg capsule 450 mg PO BID 05/21/19 01/05/24 History clopidogrel 75 mg tablet 75 mg PO DAILY 06/05/21 01/05/24 History zolpidem 10 mg tablet 5 mg PO QHS PRN Insomnia 06/05/21 01/05/24 History atorvastatin 10 mg tablet 10 mg PO DAILY 01/10/22 01/05/24 History cilostazol 100 mg tablet 100 mg PO BID 01/09/23 01/05/24 History metoprolol tartrate 25 mg tablet 25 mg PO BID 01/05/24 01/05/24 History tamsulosin 0.4 mg capsule (Flomax) 0.4 mg PO PRN PRN Prostate 01/05/24 01/05/24 History Laboratory Tests 01/05/24 01/05/24 01/05/24 15:50 15:51 16:07 WBC 9.3 K/mm3 (4.5-10.0) RBC 2.67 L M/mm3 (4.6-6.20) Hgb 9.4 L D g/dL (14.0-18.0) Hct 26.3 L % (42.0-52.0) MCV 98.5 fl (80-100) MCH 35.2 H pg (26-34) MCHC 35.7 g/dl (32-36) RDW 12.4 % (11.5-14.5) Plt Count 298 k/mm3 (150-375) MPV 9.4 fl (7.4-10.4) Immature Gran % (Auto) 1.4 H % (0-0.5) Neut % (Auto) 71.1 % (45.5-73.1) Lymph % (Auto) 20.3 % (18.3-44.2) [place] % (Auto) 6.8 % (2.6-8.5) Eos % (Auto) 0.2 % (0-4.4) Baso % (Auto) 0.2 % (0.2-1.2) Lymph # (Auto) 1.89 K/mm3 (0.9-3.2) [place] # (Auto) 0.6 K/mm3 (0.1-0.6) Eos # (Auto) 0.0 K/mm3 (0-0.3) Baso # (Auto) 0.0 K/mm3 (0.0-0.1) Abs Immat Gran (auto) 0.13 H K/mm3 (0.00-0.031) Absolute Neuts (auto) 6.6 K/mm3 (1.3-6.7) Absolute Nucleated RBC 0.000 K/mm3 (0.0-0.012) Nucleated RBC % 0.0 % (0.0-0.2) PT 13.5 Seconds (11.1-14.7) INR 1.0 APTT 25.6 Seconds (22.3-36.8) Sodium 119 L* mmol/L (137-145) Potassium 3.8 mmol/L (3.4-5.0) Chloride 84 L mmol/L (98-107) Carbon Dioxide 24 mmol/L (22-30) Anion Gap 11 mmol/L (4-12) BUN 24 H mg/dL (9-20) Creatinine 0.90 mg/dL (0.7-1.3) Estim Creat Clear Calc 57 ml/min Estimated GFR > 60 (59 - ) Glucose 123 H mg/dL (65-110) Serum Osmolality Lactic Acid 1.6 mmol/L (0.7-2.0) Calcium 8.5 mg/dL (8.4-10.2) Phosphorus Magnesium 1.6 mg/dL (1.6-2.3) Iron TIBC % Saturation Total Bilirubin 0.9 mg/dL (0.2-1.3) AST 47 U/L (17-59) ALT 27 U/L (6-50) Alkaline Phosphatase 66 U/L (38-126) Total Protein 6.0 L g/dL (6.3-8.2) Albumin 3.8 g/dL (3.5-5.1) Vitamin B12 Folate TSH (Reflex) Urine Osmolality Ur Random Sodium Ur Random Urea Urine Creatinine Blood Type O Positive Antibody Screen Negative 01/05/24
--- NOTE | 2024-01-06 13:42 | WPDGICN ---
Assessment and Plan Assessment and plan (1) Coffee ground emesis: Code(s): K92.0 - Hematemesis Status: Acute Assessment and Plan: will proceed with urgent EGD ? ulcer, avm, etc on iv protonix (2) Melena: Code(s): K92.1 - Melena Status: Acute Assessment and Plan: egd today more recommendations after egd (3) Acute blood loss anemia: Code(s): D62 - Acute posthemorrhagic anemia Status: Acute Assessment and Plan: monitor for more signs of bleeding keep hgb >7 hold plavix (4) Hyponatremia: Code(s): E87.1 - Hypo-osmolality and hyponatremia Status: Acute Assessment and Plan: by primary (5) GI bleed: Code(s): K92.2 - Gastrointestinal hemorrhage, unspecified Status: Acute (6) Peripheral artery disease: Code(s): I73.9 - Peripheral vascular disease, unspecified Status: Acute GI Consult Note Consult date/time: 01/06/24 13:42 Reason for consult: coffee ground emesis, melena HPI: Brooks Michaels Jr. is a 78 year old male with h/o PVD, HTN here with one episode of coffee ground emesis evening then he noted following day dark tarry stool and finally came to hospital because of dizziness. He never had EGD, he is on plavix. He says that prior to this he was having prostate pain so he took some naproxen. Labs in 2020 and 2021 patient had normal hemoglobin with last value recorded at 16.6. In the emergency department patient's hemoglobin was 9.4. Also noted his sodium was 119. Patient states that he has been drinking a lot of extra water due to his lightheaded and dizziness. CT scan abdomen pelvis was unremarkable. Last colonoscopy 2019. Review of Systems Constitutional: Constitutional: Reports fatigue Eyes: Eyes: Denies blurry vision ENT: Reports Normal hearing present, Denies headache(s) and Denies neck pain Cardiovascular: Cardiovascular: Denies chest pain Respiratory: Respiratory: Denies cough Gastrointestinal: Gastrointestinal: Reports melena Genitourinary: Genitourinary: Denies dysuria Musculoskeletal: Musculoskeletal: Denies neck pain Integumentary/Breasts: Skin/Breast: Denies dry skin Neurologic: Reports Normal hearing present and Denies headache(s) Psychiatric: Psychiatric: Denies anxiety Endocrine: Endocrine: Denies change in body appearance Hematologic/Lymphatic: Hematologic/Lymphatic: Denies easy bleeding Allergic/Immunologic: Allergic/Immunologic: Denies urticaria PMFSH Past Medical History Medical History (Updated 01/06/24 @ 15:55 by Reji Schmitt MD) Acute blood loss anemia BMI 25.0-25.9,adult Femoral artery stenosis, left Hyperlipidemia Hypertension Peripheral vascular disease Premature ventricular contraction Prostatitis Surgical History Surgical History History of colonoscopy 2009 (in [place]); [address] Oconnor History of lumbar fusion History of right knee surgery revision right total knee replacement December 2018 History of tonsillectomy Family History Family History Father Hypertension Acute myocardial infarction Sibling Family history of malignant neoplasm of ovary Uterus cancer Social History Social History Smoking status: Former smoker Tobacco type: cigarettes Alcohol intake: current Drinks per week: 2 Alcohol use details: occasional Substance use: never Do You Feel Safe in your Home?: Yes Lack of Transportation: No Lack of Food: Never True Current Housing: I Have Housing Concerned About Future Housing: No Difficulty Paying Gas/Electric Bills: No Difficulty Paying for Meds: No Currently Unemployed: No Education: Bachelor's Degree Difficulty w/ Childcare or Family Care: No Living arrangements: with family Occupation/Educ
--- NOTE | 2024-01-06 13:59 | SUR.OPER ---
Report called to LILIA HILLMAN Kassandra at [phone]
[2024-01-06 15:29] LABS: Hematocrit 26.6 % (42.0-52.0); Hemoglobin 9.2 g/dL (14.0-18.0)
[2024-01-06 15:40] LABS: Sodium 125 mmol/L (137-145)
[2024-01-06 20:51] LABS: Sodium 124 mmol/L (137-145)
[2024-01-07] VITALS (12 sets, daily range): BP systolic 128–163; BP diastolic 52–70; PULSE 51–76; RESP 16–20; TEMP 36.4–36.6; O2SAT 96–100
[2024-01-07 05:30] LABS: Basophils Percent Auto 0.5 % (0.2-1.2); Eosinophils Absolute Auto 0.1 K/mm3 (0-0.3); Eosinophils Percent Auto 1.6 % (0-4.4); Hematocrit 26.4 % (42.0-52.0); Hemoglobin 9.3 g/dL (14.0-18.0); Immature Granulocyte Absolute 0.17 K/mm3 (0.00-0.031); Immature Granulocyte Percent A 1.9 % (0-0.5); Lymphocytes Absolute Auto 1.86 K/mm3 (0.9-3.2); Lymphocytes Percent Auto 21.1 % (18.3-44.2); Mean Corpuscular HGB Conc 35.2 g/dl (32-36); Mean Corpuscular Hemoglobin 35.4 pg (26-34); Mean Corpuscular Volume 100.4 fl (80-100); Mean Platelet Volume 9.6 fl (7.4-10.4); Monocytes Absolute Auto 0.8 K/mm3 (0.1-0.6); Monocytes Percent Auto 8.7 % (2.6-8.5); Neutrophils Absolute Auto 5.8 K/mm3 (1.3-6.7); Neutrophils Percent Auto 66.2 % (45.5-73.1); Platelet Count Result 276 k/mm3 (150-375); Red Blood Count 2.63 M/mm3 (4.6-6.20); Red Cell Distribution Width 12.7 % (11.5-14.5); White Blood Count 8.8 K/mm3 (4.5-10.0)
[2024-01-07 05:41] LABS: Albumin Level 3.5 g/dL (3.5-5.1); Anion Gap 9 mmol/L (4-12); Blood Urea Nitrogen 12 mg/dL (9-20); Calcium 8.3 mg/dL (8.4-10.2); Carbon Dioxide 24 mmol/L (22-30); Chloride 94 mmol/L (98-107); Estimated CRCL calculation 55 ml/min; Estimated Glomerular Filt Rate > 60; Glucose 83 mg/dL (65-110); Magnesium 1.8 mg/dL (1.6-2.3); Phosphorus 2.9 mg/dL (2.5-4.5); Potassium 3.4 mmol/L (3.4-5.0); Sodium 127 mmol/L (137-145)
[2024-01-07 06:10] LABS: Cortisol Random 7.56 ug/dL
[2024-01-07] MEDS: MULTIVITS W-FE,MIN CHEWABLE TABLET 1 TABLET PO (08:26)
[2024-01-07] MEDS: METOPROLOL TARTRATE 25 MG TABLET PO (08:26)
[2024-01-07] MEDS: ATORVASTATIN 10 MG TABLET PO (08:26)
[2024-01-07] MEDS: FINASTERIDE 5 MG TABLET PO (08:26)
[2024-01-07] MEDS: PANTOPRAZOLE SODIUM IV 40 MG VIAL IV PUSH (08:27)
--- NOTE | 2024-01-07 10:01 | PM.PNNEP ---
Progress Note: A&P Assessment and Plan (1) Hyponatremia: Code(s): E87.1 - Hypo-osmolality and hyponatremia Status: Acute Assessment and Plan: long standing issue that has been present for years according to patient has been present as far back as 2018 by lab review here at [facility] sodium has fluctuated ~ 121 - 133mmol/L last sodium was 137mmol/L on July 2023 admission sodium 119mmol/L -- now up to 127mmol/L goal of therapy would be a change of 6 - 8mmol/L in 24 hours (this was achieved) risk factors for low sodium: excessive free water intake prior to admission HCTZ use known history of BPH evalutaion to date noted: TSH okay cortisol on the lowish side - consider cosyntropin stim test serum/urine osmolality and SPEP/UPEP pending follow trend of sodium levels (2) GI bleed: Code(s): K92.2 - Gastrointestinal hemorrhage, unspecified Status: Acute Assessment and Plan: as noted by melena in ER along with guaiac positive stools suspect secondary to NSAID use coupled with plavix + cilostazol medications H/H relatively stable GI following s/p EGD: findings of gastric AVM s/p APC on PPI (3) Hypertension: Code(s): I10 - Essential (primary) hypertension Status: Acute Assessment and Plan: reasonabe control at this time lisinopril/HCTZ on hold due to #1 follow trend of hemodynamics (4) BPH (benign prostatic hyperplasia): Code(s): N40.0 - Benign prostatic hyperplasia without lower urinary tract symptoms Status: Acute Assessment and Plan: due to this issue, he was taking NSAIDs and increasing his free water intake continue finasteride follow symptoms Will continue to follow. Subjective Date/time seen: 01/07/24 10:01 Interval history: Follow-up for acute on chronic hyponatremia. Status post EGD yesterday with findings/intervention noted; sodium has continues to slowly improve with minimal intervention (was on IVFs but this has since been discontinued); no apparent distress noted at the time of visit; H/H has been relatively stable; overall, feels reasonably well. Exam Narrative: General: elderly but WD/WN male in NAD Heart: normal S1 and S2; no rub Lungs: clear to auscultation Abdomen: soft, nontender, nondistended, positive bowel sounds Extremities: no cyanosis or clubbing; no edema Skin: warm and dry Objective Data Vital Signs Vital Signs: Vital Signs Temp Pulse Resp BP Pulse Ox O2 Del Method 01/07/24 10:00 60 01/07/24 08:00 53 L 20 100 Room Air 01/07/24 08:00 66 01/07/24 08:00 97.9 F 53 L 20 151/56 H 100 01/07/24 08:26 72 01/07/24 06:00 57 L 01/07/24 05:15 97.6 F 56 L 16 128/52 L 97 01/07/24 04:00 51 L 16 96 Room Air 01/07/24 04:00 51 L 01/07/24 02:00 58 L 01/07/24 00:00 61 16 96 Room Air 01/07/24 00:00 61 01/07/24 00:02 97.8 F 61 16 129/59 L 96 01/06/24 21:30 80 01/06/24 20:00 85 16 100 Room Air 01/06/24 20:00 85 01/06/24 20:27 78 01/06/24 20:13 97.8 F 66 16 152/58 H 100 01/06/24 18:00 80 01/06/24 14:51 96 Room Air 01/06/24 16:00 Room Air 01/06/24 15:38 97.2 F L 68 16 153/69 H 96 01/06/24 15:36 61 01/06/24 14:00 65 01/06/24 14:18 63 16 105/57 L 100 Room Air 01/06/24 14:08 65 18 105/52 L 98 Room Air 01/06/24 13:58 60 13 102/49 L 99 Room Air 01/06/24 13:28 97.1 F L 59 L 19 154/61 H 100 Room Air 01/06/24 12:00 60 16 100 Room Air 01/06/24 12:00 60 01/06/24 12:00 97.0 F L 58 L 16 138/61 100 Intake/Output Intake/Output: Intake & Output 01/04/24 01/05/24 01/06/24 01/07/24 23:59 23:59 23:59 23:59 Intake Total 1090 1500 Output Total 625 1600 Balance -083 -174 1330 Meds/Results Medications: Active Medications Generic Name Dose
--- NOTE | 2024-01-07 10:01 | P.PNNP_ITS ---
Progress Note: A&P Assessment and Plan (1) Hyponatremia: Code(s): E87.1 - Hypo-osmolality and hyponatremia Status: Acute Assessment and Plan: * long standing issue that has been present for years according to patient * has been present as far back as 2018 by lab review here at [facility] * sodium has fluctuated ~ 121 - 133mmol/L * last sodium was 137mmol/L on July 2023 * admission sodium 119mmol/L -- now up to 127mmol/L * goal of therapy would be a change of 6 - 8mmol/L in 24 hours (this was [facility] ed) * risk factors for low sodium: * excessive free water intake prior to admission * HCTZ use * known history of BPH * evalutaion to date noted: * TSH okay * cortisol on the lowish side - consider cosyntropin stim test * serum/urine osmolality and SPEP/UPEP pending * follow trend of sodium levels (2) GI bleed: Code(s): K92.2 - Gastrointestinal hemorrhage, unspecified Status: Acute Assessment and Plan: * as noted by melena in ER along with guaiac positive stools * suspect secondary to NSAID use coupled with plavix + cilostazol medications * H/H relatively stable * GI following * s/p EGD: findings of gastric AVM s/p APC * on PPI (3) Hypertension: Code(s): I10 - Essential (primary) hypertension Status: Acute Assessment and Plan: * reasonabe control at this time * lisinopril/HCTZ on hold due to #1 * follow trend of hemodynamics (4) BPH (benign prostatic hyperplasia): Code(s): N40.0 - Benign prostatic hyperplasia without lower urinary tract symptoms Status: Acute Assessment and Plan: * due to this issue, he was taking NSAIDs and increasing his free water intake * continue finasteride * follow symptoms Will continue to follow. Subjective Date/time seen: 01/07/24 10:01 Interval history: Follow-up for acute on chronic hyponatremia. Status post EGD yesterday with findings/intervention noted; sodium has continues to slowly improve with minimal intervention (was on IVFs but this has since been discontinued); no apparent distress noted at the time of visit; H/H has been relatively stable; overall, feels reasonably well. Exam Narrative: General: elderly but WD/WN male in NAD Heart: normal S1 and S2; no rub Lungs: clear to auscultation Abdomen: soft, nontender, nondistended, positive bowel sounds Extremities: no cyanosis or clubbing; no edema Skin: warm and dry Objective Data Vital Signs Vital Signs: Vital Signs Temp Pulse Resp BP Pulse Ox O2 Del Method 01/07/24 10:00 60 01/07/24 08:00 53 L 20 100 Room Air 01/07/24 08:00 66 01/07/24 08:00 97.9 F 53 L 20 151/56 H 100 01/07/24 08:26 72 01/07/24 06:00 57 L 01/07/24 05:15 97.6 F 56 L 16 128/52 L 97 01/07/24 04:00 51 L 16 96 Room Air 01/07/24 04:00 51 L 01/07/24 02:00 58 L 01/07/24 00:00 61 16 96 Room Air 01/07/24 00:00 61 01/07/24 00:02 97.8 F 61 16 129/59 L 96 01/06/24 21:30 80 01/06/24 20:00 85 16 100 Room Air 01/06/24 20:00 85 01/06/24 20:27 78 01/06/24 20:13 97.8 F 66 16 152/58 H 100 01/06/24 18:00 80 01/06/24 14:51 96 Room Air
--- NOTE | 2024-01-07 13:59 | WPDGIPROGNO ---
Progress Note: A&P Assessment and Plan (1) AVM (arteriovenous malformation) of stomach, acquired: Code(s): K31.819 - Angiodysplasia of stomach and duodenum without bleeding Status: Acute Assessment and Plan: this was cause of GIB treated and destroyed with APC no more signs of bleeding he can go home with daily ppi hold plavix for 7 days (2) Acute blood loss anemia: Code(s): D62 - Acute posthemorrhagic anemia Status: Acute Assessment and Plan: resolved (3) Melena: Code(s): K92.1 - Melena Status: Acute (4) Coffee ground emesis: Code(s): K92.0 - Hematemesis Status: Acute Assessment and Plan: resolved (5) Peripheral artery disease: Code(s): I73.9 - Peripheral vascular disease, unspecified Status: Acute Subjective Date/time seen: 01/07/24 13:59 Interval history: doing well egd yesterday with AVM in stomach treated with apc no more bleeding since Review of Systems Review of Systems: All systems reviewed & are unremarkable except as noted in HPI and below Exam Const: General: comfortable and no acute distress HENMT: Face/Nose/Sinus: Normal nares present Eyes: General: appearance normal, both eyes and all related structures Neck: Neck: no JVD Resp: Auscultation: clear to auscultation bilaterally Cardio: Rate: regular rate Rhythm: regular rhythm GI: Inspection: non-distended GI Palp: Yes Soft to palpation Skin: General skin exam: normal color Neuro: General: gait normal Speech: normal speech Extrem: General: normal to inspection Psych: Mental Status: mental status grossly normal Objective Data Vital Signs Vital Signs: Vital Signs - 24 hr 01/06/24 14:08 01/06/24 14:18 01/06/24 14:00 Temperature Pulse Rate 65 63 65 Respiratory Rate 18 16 Blood Pressure 105/52 L 105/57 L Pulse Oximetry 98 100 Oxygen Delivery Room Air Room Air 01/06/24 15:36 01/06/24 15:38 01/06/24 16:00 Temperature 97.2 F L Pulse Rate 61 68 Respiratory Rate 16 Blood Pressure 153/69 H Pulse Oximetry 96 Oxygen Delivery Room Air 01/06/24 14:51 01/06/24 18:00 01/06/24 20:13 Temperature 97.8 F Pulse Rate 80 66 Respiratory Rate 16 Blood Pressure 152/58 H Pulse Oximetry 96 100 Oxygen Delivery Room Air 01/06/24 20:27 01/06/24 20:00 01/06/24 20:00 Temperature Pulse Rate 78 85 85 Respiratory Rate 16 Blood Pressure Pulse Oximetry 100 Oxygen Delivery Room Air 01/06/24 21:30 01/07/24 00:02 01/07/24 00:00 Temperature 97.8 F Pulse Rate 80 61 61 Respiratory Rate 16 Blood Pressure 129/59 L Pulse Oximetry 96 Oxygen Delivery 01/07/24 00:00 01/07/24 02:00 01/07/24 04:00 Temperature Pulse Rate 61 58 L 51 L Respiratory Rate 16 Blood Pressure Pulse Oximetry 96 Oxygen Delivery Room Air 01/07/24 04:00 01/07/24 05:15 01/07/24 06:00 Temperature 97.6 F Pulse Rate 51 L 56 L 57 L Respiratory Rate 16 16 Blood Pressure 128/52 L Pulse Oximetry 96 97 Oxygen Delivery Room Air 01/07/24 08:26 01/07/24 08:00 01/07/24 08:00 Temperature 97.9 F Pulse Rate 72 53 L 66 Respiratory Rate 20 Blood Pressure 151/56 H Pulse Oximetry 100 Oxygen Delivery 01/07/24 08:00 01/07/24 10:00 01/07/24 12:00 Temperature 97.7 F Pulse Rate 53 L 60 60 Respiratory Rate 20 16 Blood Pressure 158/65 H Pulse Oximetry 100 100 Oxygen Delivery Room Air 01/07/24 12:17 01/07/24 12:00 01/07/24 12:00 Temperature 98 F Pulse Rate 64 76 64 Respiratory Rate 16 16 Blood Pressure 163/70 H Pulse Oximetry 100 100 Oxygen Delivery Room Air Intake/Output Intake/Output: Intake & Output 01/04/24 01/05/24 01/06/24 01/07/24 23:59 23:59 23:59 23:59 Intake Total 1090 1979 Output Total 945 7076 Balance -927 -321 1979 Meds/Results Medications: Active Medications Generic Name Dose Route Start Last Admin Trade Name Freq PRN R
--- NOTE | 2024-01-07 15:14 | PM.DS ---
DS: Admitting Diagnosis Discharge Date 01/07/2024 Admitting Diagnosis GI Bleed DS: Discharge Diagnosis Discharge Diagnosis (1) GI bleed due to NSAIDs: Code(s): K92.2 - Gastrointestinal hemorrhage, unspecified; T39.395A - Adverse effect of other nonsteroidal anti-inflammatory drugs [NSAID], initial encounter Status: Acute Assessment and Plan: Contineu PPI, GI consulted and S/P EGD hb 9.0, isat wnl monitor H and H with PCP Counseled about NSAIDs use cessation, noted this happens anytime he uses NSAIDs (2) Melena: Code(s): K92.1 - Melena Status: Acute Assessment and Plan: Gross melena noted on [place] in the emergency department by ED provider. Guaiac-positive Likely result of taking naproxen while also being on clopidogrel and cilostazol Continue above care (3) Hyponatremia: Code(s): E87.1 - Hypo-osmolality and hyponatremia Status: Acute (4) Hypertension: Code(s): I10 - Essential (primary) hypertension Status: Acute Assessment and Plan: home hold meds and titrate with clinical course (5) Hyperlipidemia: Code(s): E78.5 - Hyperlipidemia, unspecified Status: Acute Assessment and Plan: Continue low-dose atorvastatin (6) BPH (benign prostatic hyperplasia): Code(s): N40.0 - Benign prostatic hyperplasia without lower urinary tract symptoms Status: Acute Assessment and Plan: Patient reports prostate bothering him which is why he took the naproxen that ultimately led to the GI bleed DS: Summary Hospital Course Hospital Course: 78-year-old male patient who was admitted to the hospital for melena, coffee-ground emesis and dizziness. Patient states that 3 days ago he had episode of dizziness, 1 episode of coffee-ground emesis and began having black tarry stools. Patient states that prior to this he was having prostate pain so he took some naproxen even though he was told he should not do so because he is on blood thinners clopidogrel and cilostazol due to stents in his legs for peripheral artery disease. Patient reports that he is still dizzy and lightheaded at times. Review of prior labs shows in 2020 and 2021 patient had normal hemoglobin with last value recorded at 16.6. In the emergency department patient's hemoglobin was 9.4. Patient reports that he also chronically has mildly low sodium levels just under normal values but upon ER evaluation his sodium was noted to be 119. Patient states that he has been drinking a lot of extra water due to his lightheaded dizziness because he was trying to stay hydrated and raises blood pressure. Patient denies headache or confusion. CT scan abdomen pelvis was unremarkable. Gastroenterology was contacted. EGD was performed on 01/05. His single AVM was evident in the body of the stomach and the lesion was cauterized. Gastroenterology is working with the patient discharge and follow-up as an outpatient . Discussed the case with the technical solutions director who agrees to continue the chlorothiazide-lisinopril and follow-up with the PCP in a week and get a BMP. Patient does not want to continue clopidogrel and we advised to follow-up with his vascular surgeon since he had a placement of stent which he believes on the right popliteal and the left iliac. Discharge patient has to follow up with PCP for his hypernatremia, gastroenterologists for his follow-up of GI bleed, vascular surgeon for his stent Time Spent with Patient Time attestation: Total time spent providing and/or coordinating discharge services:45 mins Exam Narrative: GENERAL: Well-appearing, well-nourished, and in no acute distress. HEAD: Normocephalic, atraumatic. EYES: Non injected, non icteric ENT: Nares clear, no rhinorrhea or epistaxis. NECK: Supple. No JVD CHEST: Speaking in full sentences. No respiratory distress. HEART: Regular rate and rhythm. ABDOMEN/GI: Soft, nondistended. EXTREMITIES: Normal range of motion. No
[2024-01-07 15:59] LABS: Osmolality, Urine 294 mOsm/kg (50-1200)
[2024-01-07 16:29] LABS: Creatinine, Random Urine 54 mg/dL (20-320); Total Prot/Creat ratio mg/mg 0.148 (0.025-0.148); Total Protein/Creatinine Ratio 148 mg/g creat (25-148)
[2024-01-09 01:43] LABS: Protein, Total 5.4 g/dL (6.1-8.1)
[2024-01-09 12:23] LABS: Albumin 3.4 g/dL (3.8-4.8); Alpha 1 Globulin 0.2 g/dL (0.2-0.3); Alpha 2 Globulin 0.6 g/dL (0.5-0.9); Beta 1 Globulin 0.4 g/dL (0.4-0.6); Gamma Globulin 0.6 g/dL (0.8-1.7)
[2024-01-09 14:38] LABS: Kappa\\Lambda Light Chains 1.49 (0.26-1.65); Lambda Light Chain 12.7 mg/L (5.7-26.3)
== END 2024-01-07 15:48 | disposition home or self-care (01) | DRG 378 ==
LOC: ANHED 15:36 → ANHIMU 18:18
PROVIDERS: Internal Medicine Gastroenterology; Internal Medicine Nephrology; Nurse Practitioner; Physician Assistant; Admitting Provider Internal Medicine; Emergency Provider Student in an Organized Health Care Education/Training Program; PCP Family Medicine; Visit Provider General Practice
PROC: 0DJ08ZZ Inspection of Upper Intestinal Tract, Via Natural or Artificial Opening Endoscopic (ICD-10-PCS; CPT 43235; principal; 2024-01-06 17:00)
DX: K31.811 Angiodysplasia of stomach and duodenum with bleeding (principal); D62 Acute posthemorrhagic anemia; E87.1 Hypo-osmolality and hyponatremia; T39.395A Adverse effect of other nonsteroidal anti-inflammatory drugs [NSAID], initial encounter; E78.5 Hyperlipidemia, unspecified; I10 Essential (primary) hypertension; N40.0 Benign prostatic hyperplasia without lower urinary tract symptoms; I73.9 Peripheral vascular disease, unspecified; Z96.651 Presence of right artificial knee joint; Z98.1 Arthrodesis status; Z87.891 Personal history of nicotine dependence
CPT/HCPCS: 36415; 74177; 80053; 80069; 82533; 82570; 82607; 82746; 83540; 83550; 83605; 83735; 83883; 83930; 83935; 84155; 84156; 84165; 84166; 84295; 84300; 84443; 84540; 85014; 85018; 85025; 85610; 85730; 86850; 86900; 86901; 96374; 99285; A9270; J2470; J2704; J7030; J7120; Q9967

== ENCOUNTER 2024-07-10 11:37 | Outpatient (CLI) | payer MEDICARE, OTHER, SELFPAY ==
--- NOTE | ~2024-07-10 | XR_ITS ---
XR chest 2V 07/10/2024 11:53 Indication: Cough Procedure: 2 view chest Comparison: Comparison to multiple prior studies sequentially, with oldest reviewed study dated 02/09. Findings: Borderline heart size. There is right pleural thickening with pleural calcifications. There is chronic consolidation of the right lung base without significant change compared with 06/05/2021. No acute focal pneumonia, edema or pneumothorax. No acute osseous abnormality. Impression: 1: No acute cardiopulmonary disease. Reviewed, dictated and finalized at location B. INSPECTOR Impression: 1: No acute cardiopulmonary disease.
== END 2024-07-10 11:38 | disposition home or self-care (01) ==
LOC: MICIMG 11:41
PROVIDERS: PCP Family Medicine; Visit Provider Registered Nurse
DX: R05.9 Cough, unspecified (principal)
CPT/HCPCS: 71046